=== PATIENT | male | born 1990 | race Caucasian/White ===

== ENCOUNTER → 2020-01-15 | Outpatient (CLI) | payer OTHER, SELFPAY ==
[2020-01-15 15:47] VITALS: BMI 19.0
== END | disposition home or self-care (01) ==
LOC: LABSPEC 17:38
PROVIDERS: PCP Family Medicine; Referring Provider Physician Assistant Surgical; Visit Provider Physician Assistant Surgical
DX: Z20.828 Contact with and (suspected) exposure to other viral communicable diseases (principal)
CPT/HCPCS: 87635; 94799; U0003